=== PATIENT | female | born 1960 | race Caucasian/White ===

== ENCOUNTER 2019-07-01 09:24 | Emergency (ER) | payer BC ==
[2019-07-01 10:12] LABS: Absolute Lymphocytes (CBC) 1.6 K/uL (0.7-4.9); Basophils % 0.6 % (0-1.3); Hematocrit 38.7 % (36.0-45.0); Lymphocytes % 35.4 % (15.3-44.8); MPV 8.4 fL (7.6-11.3); RBC Red Blood Cell Count 4.22 M/uL (3.86-4.86)
[2019-07-01 10:25] LABS: BUN Blood Urea Nitrogen 16 mg/dL (7-18); Bicarbonate 30 mmol/L (21-32); Glucose Level 97 mg/dL (74-106); NT PRO-BNP 17 pg/mL (<125); Potassium 4.1 mmol/L (3.5-5.1); Sodium Level 140 mmol/L (136-145); Troponin (Emerg Dept Use Only) < 0.02 ng/mL (0.0-0.045)
--- OUTSIDE RECORDS SUMMARY | 2019-07-01 10:38 | XMS REPORT | Summary of Care ---
:1960 Author Organization [facility] Address [address] [place] [address] Care Team Providers Name Role Phone Akash Appiah Siobhan Primary Care Provider Reason for Visit Reason Comments Results Encounter Details Date Type Department Care Team Description 06/28/2019 Telephone ACCESS CENTER Comfort Marquez FNP Results [address] [place] [address] [address] [facility] [phone] [place] [id number] [phone] Allergies Active Allergy Reactions Severity Noted Date Comments Amoxicillin-Pot Clavulanate Nausea and/or Vomiting Codeine Nausea and/or Vomiting 06/27/2019 documented as of this encounter (statuses as of 06/28/2019) Medications Medication Sig Dispensed Refills Start Date End Date Status estradiol 1 mg tablet TK 1 T PO QD 0 05/26/2019 Active PREM-D 24 HOUR TK 1 T PO QD PRF 0 06/03/2019 Active 180-240 mg per 24 hr ALLERGIES OR tablet CONGESTION. levoFLOXacin 750 mg TK 1 T PO QD FOR 5 0 06/03/2019 Active tablet DAYS benzonatate 100 mg TK 1 TO 2 C PO Q 6 0 06/03/2019 Active capsule H PRF COUGH budesonide 0.25 mg/2 USE 2 PUFFS PO BID 0 06/25/2019 Active mL nebulizer solution AND RINSE MOUTH AFTER USE azithromycin 250 mg 0 06/25/2019 Active tablet promethazine 6.25 mg/5 TK 5 TO 10 ML PO 0 06/25/2019 Active mL solution TID PRN FOR COUGH rosuvastatin 10 mg TK 1 T PO D 0 04/14/2019 Active tablet mesalamine (PENTASA Take by mouth. 0 Active ORAL) fluticasone propionate Use in each 0 Active (FLONASE NASAL) nostril. documented as of this encounter (statuses as of 06/28/2019) Active Problems No known active problemsdocumented as of this encounter (statuses as of 06/28/2019) Social History Tobacco Use Types Packs/Day Years Used Date Never Smoker Smokeless Tobacco: Never Used Sex Assigned at Date Recorded Not on file Job Start Date Occupation Industry Not on file Not on file Not on file Travel History Travel Start Travel End No recent travel history available. COVID-19 Exposure Response Date Recorded In the last month, have you been in contact with No / Unsure 06/27/2019 11:16 AM CDT someone who was confirmed or suspected to have Coronavirus / COVID-19? documented as of this encounter Last Filed Vital Signs Not on filedocumented in this encounter Plan of Treatment Health Maintenance Due Date Last Done Comments HEPATITIS C (HCV) SCREEN 1960 DTaP,Tdap,and Td Vaccines (1 - 1973 Tdap) PAP SMEAR 1983 Breast Cancer Screening 2002 (MAMMOGRAM) COLONOSCOPY 01/12/2012 Zoster Recombinant Vaccine 01/12/2012 (SHINGRIX) (1 of 2) INFLUENZA VACCINE (Season Ended) 2019 PNEUMOCOCCAL 0-64 YEARS COMBINED Aged Out No longer eligible based on SERIES patient's age to complete this topic documented as of this encounter Results Not on filedocumented in this encounter Insurance Payer Benefit Plan Subscriber ID Effective Dates Phone Address Type / Group BCBS OF [facility] [id number] 2018-Kory [phone] [address] PPO/POS [place] - OUT OF t 7 [id number] [place] [address] documented as of this encounter
--- OUTSIDE RECORDS SUMMARY | 2019-07-01 10:38 | XMS REPORT ---
:1960 Author Organization [facility] t Address [address] [place] [address] Dr. Peterson[address] [place] [address] Care Team Providers Name Role Phone Unavailable Unavailable Unavailable Problems This patient has no known problems. Allergies, Adverse Reactions, Alerts This patient has no known allergies or adverse reactions. Medications This patient has no known medications.
--- OUTSIDE RECORDS SUMMARY | 2019-07-01 10:38 | XMS REPORT | Summary of Care ---
:1960 Author Organization [facility] Address [address] [place] [address] Care Team Providers Name Role Phone Akash Appiah Primary Care Provider Reason for Visit Reason Comments Cough productive, x 06/03/2019, pt denies fever Shortness of Breath WHEEZING Encounter Details Date Type Department Care Team Description 06/27/2019 Urgent Care [facility] Anatoly Yost MD [facility] [address] [place] [address] Cough (Primary Dx); Medicine - [place] [facility] SOB (shortness of breath); [facility] Drkarina chavze Blood pressure elevated with [place] [address] Allergies Active Allergy Reactions Severity Noted Date Comments Amoxicillin-Pot Clavulanate Nausea and/or Vomiting Codeine Nausea and/or Vomiting 06/27/2019 documented as of this encounter (statuses as of 06/27/2019) Medications Medication Sig Dispensed Refills Start Date [...] as of this encounter (statuses as of 06/27/2019) Active Problems No known active problemsdocumented as of this encounter (statuses as of 06/27/2019) Social History Tobacco Use Types Packs/Day Years [...] of this encounter Last Filed Vital Signs Vital Sign Reading Time Taken Comments Blood Pressure 151/83 06/27/2019 11:31 AM CDT Pulse 72 06/27/2019 11:26 AM CDT Temperature 36.6 C (97.8 F) 06/27/2019 11:26 AM CDT Respiratory Rate 18 06/27/2019 11:26 AM CDT Oxygen Saturation 99% 06/27/2019 11:26 AM CDT Inhaled Oxygen Concentration - - Weight 63.5 kg (140 lb) 06/27/2019 11:26 AM CDT Height 162.6 cm (5' 4") 06/27/2019 11:26 AM CDT Body Mass Index 24.03 06/27/2019 11:26 AM CDT documented in this encounter Patient Instructions Patient InstructionsComfort Marquez FNP - 06/27/2019 11:20 AM CDT Patient Education Shortness of Breath (Dyspnea) Shortness of breath is the feeling that you can't catch your breath or get enough air. It is also known as dyspnea. Dyspnea can be caused by many different conditions. They include: Acute asthma attack Worsening of chronic lung diseases such as chronic bronchitis and emphysema Heart failure. This is when weak heart muscle allows extra fluid to collect in the lungs. Panic attacks or anxiety. Fear can cause rapid breathing (hyperventilation). Pneumonia, or an infection in the lung tissue Exposure to toxic substances, fumes, smoke, or certain medicines Blood clot in the lung (pulmonary embolism). This is often from a piece of blood clot in a deep vein of the leg (deep vein thrombosis) that breaks off and travels to the lungs. Heart attack or heart-related chest pain (angina) Anemia Collapsed lung (pneumothorax) Dehydration Based on your visit today, the exact cause of your shortness of breath is not certain. Your tests dont show any of the serious causes of dyspnea. You may need other tests to find out if you have a serious problem. Its important to watch for any new symptoms or symptoms that get worse. Follow up with your healthcare provider as directed. Home care Follow these tips to take care of yourself at home: When your symptoms are better, go back to your usual activities. If you smoke, you should stop. Join a quit-smoking program or ask your healthcare provider for help. Eat a healthy diet and get plenty of sleep. Get regular exercise. Talk with your healthcare provider before starting to exercise, especially if you have other medical problems. Cut down on the amount of caffeine and stimulants you consume. Follow-up care Follow up with your healthcare provider, or as advised. If tests were done, you will be told if your treatment needs to be changed. You can call as directedfor the results. If an X-ray was taken, a specialist will review it. You will be notified of any new findings that may affect your care. Call 911 Shortness of breath may be a sign of a serious medical problem. For example, it may be a problem with your heart or lungs. Call 911 if you have worsening shortness of breath or trouble breathing, especially with any of the symptoms below: Confusion or difficulty waking Fainting or loss of consciousness. Fast or irregular heartbeat Coughing up blood Pain in your chest, arm, shoulder, neck, or upper back Sweating When to seek medical advice Call your healthcare provider right away if any of these occur: Slight shortness of breath or wheezing Redness, pain or swelling in your leg, arm, or other body area Swelling in both legs or ankles Fast weight gain Dizziness or weakness Fever of 100.4F (38C) or higher, or as directed by your healthcare provider [employer] last reviewed this educational content on 07/28/201719996039-9424 [employer]. [address] [place] [address], [place] [address]. All rights reserved. This information is not intended as a substitute for professional medical care. Always follow your healthcare professional's instructions. Patient Education Chronic Cough withUncertain Cause (Adult) Everyone has had a cough as part of the common cold, flu, or bronchitis. This kind of cough occurs along with an achy feeling, low-grade fever, nasal and sinus congestion, and a scratchy or sore throat. This usually gets better in 2 to 3 weeks. A cough that lasts longer than 3 weeks may be due to other causes. Your healthcare provider may refer to this as a chronic cough. If your cough does not improve over the next 2 weeks, further testing may be needed. Follow up with your healthcare provider as advised. Cough suppressants may be recommended. Based on your exam today,the exact cause of your cough is not certain. Below are some common causes for persistent cough. Smoker's cough Smokers cough doesnt go away. If you continue to smoke, it only gets worse. The cough is from irritation in the air passages. Talk to your healthcare provider about quitting. Medicines or nicotine-replacement products, like gum or the patch, may make quitting easier. Postnasal drip A cough that is worse at night may be due to postnasal drip. Excess mucus in the nose drains from the back of your nose to your throat. This triggers the cough reflex. Postnasal drip may be due to a sinus infection or allergy. Common allergens include dust, tobacco smoke (both inhaled and secondhand smoke), environmental pollutants, pollen, mold, pets, cleaning agents, room deodorizers, and chemical fumes. Ulbl-vtl-rucyzyx antihistamines or decongestants may be helpful for allergies. A sinus infection may requires antibiotic treatment. See your healthcare provider if symptoms continue. Medicines Certain prescribed medicines can cause a chronic cough in some people: PERLA inhibitors for high blood pressure. These include benazepril, captopril, enalapril, fosinopril, lisinopril, quinapril, ramipril, and others. Beta-blockers for high blood pressure and other conditions. These include propranolol, atenolol, metoprolol, nadolol, and others. Let your healthcare provider know if you are taking any of these. The chronic cough may mean your medicine needs to be changed. Asthma Cough may be the only sign of mild asthma. You may have tests to find out if asthma is causing your cough. You may also take asthma medicine on a trial basis. Acid reflux (heartburn, GERD) The esophagus is the tube that carries food from the mouth to the stomach. A valve at its lower end prevents stomach acids from flowing upward. If this valve does not work properly, acid from the stomach enters the esophagus. This may cause a burning pain in the upper abdomen or lower chest, belching,or cough. Symptoms are often worse when lying flat. Avoid eating or drinking before bedtime. Try using extra pillows to raise your upper body, or place 4-inch blocks under the head of your bed. You maytry an mvls-rgg-hlxdpvn (OTC) antacid or an acid-blocking medicine such as famotidine, cimetidine, ranitidine, esomeprazole, lansoprazole, or omeprazole. Stronger medicines for this condition can be prescribed by your healthcare provider. Ask your healthcare provider which OTC medicine to use. Depending on your current medicines, some OTC medicines may cause drug interactions and should be avoided. Follow-up care Follow up with your healthcare provider, or as advised, if your cough does not improve. Further testing may be needed. Note: If an X-ray was taken, a specialist will review it. You will be notified of any new findings that may affect your care. When to seek medical advice Call your healthcare provider right away if any of these occur: Mild wheezing or difficulty breathing Fever of 100.4F (38C) or higher, or as directed by your healthcare provider Unexpected weight loss Coughing up large amounts of colored sputum or blood-tinged sputum Night sweats (sheets and pajamas get soaking wet) Call 911 Call 911 if any of these occur: Coughing up blood Moderate to severe trouble breathing or wheezing [employer] last reviewed this educational content on 07/28/[id number] [employer]. [address] [place] [address], [place] [address]. All rights reserved. This information is not intended as a substitute for professional medical care. Always follow your healthcare professional's instructions. documented in this encounter Progress Notes Comfort Marquez, CONSTANTINO - 06/27/2019 11:20 AM CDT Cc: Chief Complaint Patient presents with Cough productive, x 06/03/2019, pt denies fever Shortness of Breath WHEEZING Aura Looney is a 59 year old female. 3 weeks of cough, on had a chest X-ray- was treated as an allergy cough, as the cough continued she followed up was given Levaquin, then Z-pack and steroid inhaler, mucinex and promethazine was given this past tuesdays as a second routine of therapies. She is here to be screened to for covid due toprolonged symptoms. Cough Cough characteristics: Dry Sputum characteristics: Nondescript Severity: Moderate Onset quality: Gradual Duration: 3 weeks Timing: Constant Progression: Unchanged Chronicity: New Smoker: no Context: upper respiratory infection Relieved by: Nothing Worsened by: Deep breathing and lying down Ineffective treatments: Decongestant and ipratropium inhaler Associated symptoms: chills, shortness of breath and wheezing Associated symptoms: no chest pain and no fever Shortness of breath: Severity: Mild Onset quality: Gradual Timing: Intermittent Progression: Improving Wheezing: Severity: Mild Onset quality: Gradual Timing: Intermittent Progression: Improving Chronicity: Recurrent Risk factors: recent infection Allergies Aura is allergic to augmentin [amoxicillin-pot clavulanate] and codeine. Medications Outpatient Medications Prior to Visit Medication Sig Dispense Refill PREM-D 24 HOUR 180-240 mg per 24 hr tablet TK 1 T PO QD PRF ALLERGIES OR CONGESTION. azithromycin 250 mg tablet benzonatate 100 mg capsule TK 1 TO 2 C PO Q 6 H PRF COUGH budesonide 0.25 mg/2 mL nebulizer solution USE 2 PUFFS PO BID AND RINSE MOUTH AFTER USE estradiol 1 mg tablet TK 1 T PO QD fluticasone propionate (FLONASE NASAL) Use in each nostril. mesalamine (PENTASA ORAL) Take by mouth. promethazine 6.25 mg/5 mL solution TK 5 TO 10 ML PO TID PRN FOR COUGH rosuvastatin 10 mg tablet TK 1 T PO D levoFLOXacin 750 mg tablet TK 1 T PO QD FOR 5 DAYS No facility-administered medications prior to visit. Histories No past medical history on file. No past surgical history on file. Social History Socioeconomic History Marital status: Spouse name: Not on file Number of children: Not on file Years of education: Not on file Highest education level: Not on file Occupational History Not on file Social Needs Financial resource strain: Not on file Food insecurity: Worry: Not on file Inability: Not on file Transportation needs: Medical: Not on file Non-medical: Not on file Tobacco Use Smoking status: Never Smoker Smokeless tobacco: Never Used Substance and Sexual Activity Alcohol use: Not on file Drug use: Not on file Sexual activity: Not on file Lifestyle Physical activity: Days per week: Not on file Minutes per session: Not on file Stress: Not on file Relationships Social connections: Talks on phone: Not on file Gets together: Not on file Attends jewish service: Not on file Active member of club or organization: Not on file Attends meetings of clubs or organizations: Not on file Relationship status: Not on file Intimate partner violence: Fear of current or ex partner: Not on file Emotionally abused: Not on file Physically abused: Not on file Forced sexual activity: Not on file Other Topics Concern Not on file Social History Narrative Not on file No family history on file. Review of Systems Constitutional: Positive for chills. Negative for fever. Eyes: Negative. Respiratory: Positive for cough, shortness of breath and wheezing. Negative for apnea, choking and chest tightness. Cardiovascular: Negative. Negative for chest pain, palpitations and leg swelling. Gastrointestinal: Negative. Skin: Negative. Neurological: Negative. Endocrine: Endocrine negative Vital Signs BP (!) 151/83 | Pulse 72 | Temp 36.6 C (97.8 F) (Oral) | Resp 18 | Ht 5' 4" (1.626 m) | Wt 140 lb (63.5 kg) | SpO2 99% | BMI 24.03 kg/m Physical Exam Constitutional: She is oriented to person, place, and time. She appears well- developed and well-nourished. HENT: Head: Normocephalic. Right Ear: Hearing, tympanic membrane, external ear and ear canal normal. Left Ear: Hearing, tympanic membrane, external ear and ear canal normal. Nose: Nose normal. Right sinus exhibits no maxillary sinus tenderness and no frontal sinus tenderness. Left sinus exhibits no maxillary sinus tenderness and no frontal sinus tenderness. Mouth/Throat: Uvula is midline, oropharynx is clear and moist and mucous membranes are normal. No tonsillar exudate. Neck: Normal range of motion. Neck supple. Cardiovascular: Normal rate, regular rhythm, normal heart sounds and intact distal pulses. Exam reveals no gallop and no friction rub. No murmur heard. Pulmonary/Chest: Effort normal and breath sounds normal. No respiratory distress. She has no wheezes. She has no rales. She exhibits no tenderness. Abdominal: Soft. Bowel sounds are normal. She exhibits no distension. There is no tenderness. Lymphadenopathy: Head (right side): No submental, no submandibular, no tonsillar, no preauricular and no posterior auricular adenopathy present. Head (left side): No submental, no submandibular, no tonsillar, no preauricular and no posterior auricular adenopathy present. She has no cervical adenopathy. Neurological: She is alert and oriented to person, place, and time. Skin: Skin is warm and dry. Capillary refill takes less than 2 seconds. No rash noted. No erythema. No pallor. Psychiatric: She has a normal mood and affect. Nursing note and vitals reviewed. Assessment/Plan 1. Cough: continue cough medication and z-pack given by PCP. covid test done pending result, In the meantime, quarantine in place, treat symptoms with OTC meds, Tylenol as needed but no NSAIDs. Stay in quarantine until symptoms subsides, plus 3 days afterwards or until you hear otherwise. Follow up with your PCP as needed, and if with worsening of symptoms, any respiratory distress, go to the ER. 2. SOB: Continue rescue inhaler as prescribed again if no relief, worse please go tot he ER or RTC depending on severity. 3. Elevated blood pressure: Watch blood pressure: check at least twice weekly. Low salt Low caffeine diet Low alcohol Avoid tobacco products. Heart Healthy Exercise: total of 150 minutes of cardio: walking,swimming, hiking, biking every week. Heart healthy diet: low fat/carb/sugar diet; increase lean meat-chicken, turkey, fish; increase vegetables/fruits ( still be careful because elevated sugar level) ER--> worsening condition; cp, shortness of breath, dizziness, syncope, palpitations, n/v, diaphoresis. Plan of care, desired health behaviors, goals, and medication discussed with patient. Education resources provided and reviewed with AVS. Patient/guardian/family verbalized understanding & agrees to plan of care. This visit did not involve counseling and coordination that comprised more than 50% of the visit time. If applicable, the [facility] database was accessed to review any controlled substance prescription claims data. The [employer] prescription claims data in [employer] was reviewed to assess patient compliance with the medication treatment plan. Maddie Moore RN - 06/27/2019 11:20 AM CDT Aura Looney is a 59 year old female Chief Complaint Patient presents with Cough productive, x 06/03/2019, pt denies fever Shortness of Breath WHEEZING Vitals: 06/27/19 1126 BP: (!) 157/82 Pulse: 72 Resp: 18 Temp: 36.6 C (97.8 F) TempSrc: Oral SpO2: 99% Weight: 140 lb (63.5 kg) Height: 5' 4" (1.626 m) [employer] #[id number] [place] [address] [employer] [facility] Patient AAOx4 and in no acute distress. All Vitals taken, allergies and all medications reviewed, fall risk assessed. Pain level 0. documented in this encounter Plan of Treatment Name Type Priority Associated Diagnoses Order S chedule CORONAVIRUS COVID-19 LAB Routine Cough Expected: 06/27/2019, TESTING SOB (shortness of Expires: 0 06/26/2020 breath) Health Maintenance Due Date Last Done Comments HEPATITIS C (HCV) SCREEN 1960 DTaP,Tdap,and Td Vaccines (1 - 1973 Tdap) PAP SMEAR 1983 Breast Cancer Screening 2002 (MAMMOGRAM) COLONOSCOPY 01/12/2012 Zoster Recombinant Vaccine 01/12/2012 (SHINGRIX) (1 of 2) INFLUENZA VACCINE (#1) 2018 PNEUMOCOCCAL 0-64 YEARS COMBINED Aged Out No longer eligible based on SERIES patient's age to complete this topic documented as of this encounter Results Not on filedocumented in this encounter Visit Diagnoses Diagnosis Cough - Primary SOB (shortness of breath) Shortness of breath Blood pressure elevated without history of HTN Elevated blood pressure reading without diagnosis of hypertension documented in this encounter Insurance Payer Benefit Plan Subscriber ID Effective Dates Phone Address Type / Group BCBS [facility] [id number] 2019-Pres [phone] [address] PPO/POS [facility] [id number] [place] [address] documented as of this encounter
--- NOTE | 2019-07-01 10:49 | EKG ---
Test Date: 2019-07-01 Test Time: 09:42:39 [employer] Observer Helper: JINNY MEASUREMENT RESULTS: Intervals: Rate: 75 MN: 128 QRSD: 86 QT: 378 QTc: 422 Taft: P: 79 MN: 128 QRS: 65 T: 69 INTERPRETIVE STATEMENTS: Normal sinus rhythm with sinus arrhythmia Normal ECG No previous ECG available for comparison Electronically Signed On 07-01-19 10:48:55 CDT by Eric Yañez
--- NOTE | 2019-07-01 11:06 | RAD REPORT ---
EXAM DESCRIPTION: Galina Ellington (2 Views)07/01/2019 10:48 am CLINICAL HISTORY: Chest pain COMPARISON: 2018 FINDINGS: The lungs appear clear of acute infiltrate. The heart is normal size IMPRESSION: No acute abnormalities displayed
--- NOTE | 2019-07-01 11:10 | ER ---
Nurse's Notes [facility] Name: Aura Looney Age: 59 yrs Sex: Female : 1960 Arrival Date: 07/01/2019 Time: 09:27 Bed 19 Private MD: Akash Appiah Diagnosis: Chest pain, unspecified Presentation: 06/30 09:45 Chief complaint: Patient states: sharp, L sided chest wall pain that began 3 days ago. ss Worse with movement. PT recently had a cough, but was given IM antibiotics, inhaler and tested COVID. Pt reports that her cough has improved significantly and her COVID test was negative. Denies fever. Coronavirus screen: Proceed with normal triage. Patient denies travel on a cruise ship or to a country the [facility] currently lists as an affected area. Patient denies contact with known and/or suspected case of COVID-19. Ebola Screen: Patient denies exposure to infectious person. Patient denies travel to an Ebola-affected area in the 21 days before illness onset. Initial Sepsis Screen: Does the patient meet any 2 criteria? No. Patient's initial sepsis screen is negative. Does the patient have a suspected source of infection? No. Patient's initial sepsis screen is negative. Risk Assessment: Do you want to hurt yourself or someone else? Patient reports no desire to harm self or others. Onset of symptoms was June 28, 2019. 09:45 Method Of Arrival: Ambulatory 09:45 Acuity: BRIANDA 3 ss Historical: - Allergies: 09:49 Codeine; ss 09:49 Augmentin; ss - PMHx: 09:49 chron's disease; High Cholesterol; IBS; ss - PSHx: 09:49 Tonsillectomy; Hysterectomy; Appendectomy; Cholecystectomy; ss - Immunization history:: Adult Immunizations up to date. - Social history:: Smoking status: Patient denies any tobacco usage or history of. - Family history:: not pertinent. - Hospitalizations: : No recent hospitalization is reported. Screenin:37 Abuse screen: Denies threats or abuse. Denies injuries from another. Nutritional ph screening: No deficits noted. Tuberculosis screening: No symptoms or risk factors identified. Fall Risk None identified. Assessment: 10:30 General: Appears in no apparent distress. comfortable, slender, well groomed, Behavior ph is calm, cooperative, appropriate for age, Denies fever. Pain: Complains of pain in chest Pain does not radiate. Quality of pain is described as sharp. Neuro: Level of Consciousness is awake, alert, obeys commands, Oriented to person, place, time, situation. Cardiovascular: Reports chest pain, Denies fatigue, lightheadedness, nausea, palpitations, shortness of breath, Capillary refill < 3 seconds in bilateral fingers Patient's skin is warm and dry. Rhythm is regular Chest pain is located in left anterior chest wall is aggravated by breathing. Respiratory: Reports pain with respiration Airway is patent Respiratory effort is even, unlabored, Respiratory pattern is regular, symmetrical, Denies cough, shortness of breath. GI: No signs and/or symptoms were reported involving the gastrointestinal system. Derm: Skin is intact, is healthy with good turgor, Skin is pink, warm \T\ dry. Musculoskeletal: Circulation, motion, and sensation intact. Range of motion: intact in all extremities. Vital Signs: 09:45 BP 141 / 72; Pulse 86; Resp 15; Temp 98.5(TE); Pulse Ox 100% on R/A; Weight 63.5 kg; ss Height 5 ft. 4 in. (162.56 cm); Pain 6/10; 11:36 BP 123 / 56; Pulse 76; Resp 18; Temp 98.0; Pulse Ox 99% on R/A; ph 09:45 Body Mass Index 24.03 (63.50 kg, 162.56 cm) ss ED Course: 09:27 Patient arrived in ED. am2 09:27 Akash Appiah MD is Private Physician. am2 09:30 Barney Hale MD is Attending Physician. rn 09:43 EKG done, by coding technician. reviewed by Barney Hale MD. at1 09:48 Triage completed. ss 09:49 Arm band placed on right wrist. ss 09:54 Initial lab(s) drawn, by me, sent to lab. Inserted saline lock: 20 gauge in right jl7 antecubital area, using aseptic technique. Blood collected. 09:59 Iram Jorge, RN is Primary Nurse. ph 10:47 XRAY Chest Pa And Lat (2 Views) In Process Unspecified. EDMS 11:37 Patient has correct armband on for positive identification. Placed in gown. Bed in low ph position. Call light in reach. Side rails up X 1. library monitor on. Pulse ox on. NIBP on. Door closed. Noise minimized. Warm blanket given. 11:40 No provider procedures requiring assistance completed. IV discontinued, intact, ph bleeding controlled, No redness/swelling at site. Pressure dressing applied. Patient maintains SpO2 saturation greater than 95% on room air. Administered Medications: No medications were administered Outcome: 11:10 Discharge ordered by . rn 11:40 Discharged to home ambulatory. ph 11:40 Condition: good 11:40 Discharge instructions given to patient, Instructed on discharge instructions, follow up and referral plans. Demonstrated understanding of instructions, follow-up care. 11:41 Patient left the ED. ph Signatures: Dispatcher [employer] EDMS Barney Hale MD MD rn Smirch, Shelby RN RN ss Yue Hicks, rubber down EKG Tat1 Iram Jorge RN RN ph Miguel Camp RN RN jl7 Yue Carrillo am2
--- NOTE | 2019-07-01 11:11 | EDPHYS ---
Physician Documentation [facility] Name: Aura Looney Age: 59 yrs Sex: Female : 1960 Arrival Date: 07/01/2019 Time: 09:27 Bed 19 Private MD: Akash Appiah ED Physician Barney Hale HPI: 06/30 10:28 This 59 yrs old Female presents to ER via Ambulatory with complaints of Chest rn Pain. 10:28 The patient or guardian reports chest pain that is located primarily in the anterior rn chest wall, left. Onset: 3 day(s) ago. The pain does not radiate. Associated signs and symptoms: Pertinent positives: cough, Pertinent negatives: abdominal pain, diaphoresis, nausea, palpitations, shortness of breath, syncope, vomiting. The chest pain is described as aching, sharp. Duration: The patient or guardian reports multiple episodes, that are intermittent. Modifying factors: The symptoms are alleviated by remaining still, splinting chest when turning. the symptoms are aggravated by movement, palpation of area, twisting torso. Severity of pain: At its worst the pain was mild in the emergency department the pain is unchanged. The patient has not experienced similar symptoms in the past. The patient has been recently seen by a physician:. Reports seen a few times by doctors over last month for cough, has had 2 rounds of abx, inhalers, steroids, allergy medication and cough is finally improving. No fever. COVID-19 test neg from 4 days ago. No trauma. Hurts left chest when moves/coughs/palpates, improved with splinting of chest with hand when twisting or moving. NO hemoptysis. No hx of dvt/pe/cardiac problems. . Historical: - Allergies: 09:49 Codeine; ss 09:49 Augmentin; ss - PMHx: 09:49 chron's disease; High Cholesterol; IBS; ss - PSHx: 09:49 Tonsillectomy; Hysterectomy; Appendectomy; Cholecystectomy; ss - Immunization history:: Adult Immunizations up to date. - Social history:: Smoking status: Patient denies any tobacco usage or history of. - Family history:: not pertinent. - Hospitalizations: : No recent hospitalization is reported. ROS: 10:28 Constitutional: Negative for fever, chills, and weight loss, Eyes: Negative for injury, rn pain, redness, and discharge, Neck: Negative for injury, pain, and swelling, Cardiovascular: Negative for palpitations, and edema, Respiratory: Negative for shortness of breath, wheezing Abdomen/GI: Negative for abdominal pain, nausea, vomiting, diarrhea, and constipation, MS/Extremity: Negative for injury and deformity, Skin: Negative for injury, rash, and discoloration, Neuro: Negative for headache, weakness, numbness, tingling, and seizure. Exam: 10:28 Constitutional: This is a well developed, well nourished patient who is awake, alert, rn and in no acute distress. Ambulatory to room without difficulty or assistance. Head/Face: Normocephalic, atraumatic. ENT: MMM, no stridor Cardiovascular: Regular rate and rhythm. No pulse deficits. Respiratory: Lungs have equal breath sounds bilaterally, clear to auscultation. No increased work of breathing, no retractions or nasal flaring. Abdomen/GI: soft, non-tender MS/ Extremity: Pulses equal, no cyanosis. Neuro: Awake and alert, GCS 15, oriented to person, place, time, and situation. Cranial nerves II-XII grossly intact. Motor strength 5/5 in all extremities. Sensory grossly intact. Cerebellar exam normal. Normal gait. Vital Signs: 09:45 BP 141 / 72; Pulse 86; Resp 15; Temp 98.5(TE); Pulse Ox 100% on R/A; Weight 63.5 kg; ss Height 5 ft. 4 in. (162.56 cm); Pain 6/10; 11:36 BP 123 / 56; Pulse 76; Resp 18; Temp 98.0; Pulse Ox 99% on R/A; ph 09:45 Body Mass Index 24.03 (63.50 kg, 162.56 cm) ss MDM: 09:30 Patient medically screened. rn 11:09 Differential diagnosis: acute pericarditis, chest wall pain, costochondritis, rn pericarditis, pleurisy, pneumonia, pneumothorax, pulmonary embolus. Data reviewed: vital signs, nurses notes, lab test result(s), EKG, radiologic studies, plain films, and as a result, I will discharge patient. Test interpretation: by ED physician or midlevel provider: ECG, plain radiologic studies, CXR neg for acute abnormality. Counseling: I had a detailed discussion with the patient and/or guardian regarding: the historical points, exam findings, and any diagnostic results supporting the discharge/admit diagnosis, lab results, radiology results, the need for outpatient follow up, to return to the emergency department if symptoms worsen or persist or if there are any questions or concerns that arise at home. Special discussion: Based on the patient's history, exam, and Dx evaluation, there is no indication for emergent intervention or inpatient Tx. It is understood by the patient/guardian that if the Sx's persist or worsen they need to return immediately for re-evaluation. I discussed with the patient/guardian in detail that at this point there is no indication for admission to the hospital. It is understood, however, that if the symptoms persist or worsen the patient needs to return immediately for re-evaluation. ED course: Neg CXR, neg d-dimer, no ischemia on ECG, neg trop. Will dc home as pleurisy/chest wall pain with return precautions. No oxygen requirement. . 06/30 09:41 Order name: Basic Metabolic Panel; Complete Time: 10:32 rn 06/30 09:41 Order name: CBC with Diff; Complete Time: 10:23 rn 06/30 09:41 Order name: NT PRO-BNP; Complete Time: 10:32 rn 06/30 09:41 Order name: Troponin (emerg Dept Use Only); Complete Time: 10:32 rn 06/30 09:41 Order name: D-Dimer; Complete Time: 10:23 rn 06/30 09:41 Order name: EKG; Complete Time: 09:42 rn 06/30 09:41 Order name: Cardiac monitoring; Complete Time: 10:55 rn 06/30 09:41 Order name: EKG - Nurse/Tech; Complete Time: 09:50 rn 06/30 09:41 Order name: IV Saline Lock; Complete Time: 09:54 rn 06/30 09:41 Order name: Labs collected and sent; Complete Time: 09:53 rn 06/30 09:41 Order name: O2 Per Protocol; Complete Time: 09:50 rn 06/30 09:41 Order name: O2 Sat Monitoring; Complete Time: 09:50 rn 06/30 09:41 Order name: XRAY Chest Pa And Lat (2 Views); Complete Time: 11:26 rn Administered Medications: No medications were administered Disposition: 07/01/19 11:10 Discharged to Home. Impression: Chest pain, unspecified. - Condition is Stable. - Discharge Instructions: Nonspecific Chest Pain, Chest Wall Pain. - Medication Reconciliation Form, Thank You Letter, Antibiotic Education, Prescription Opioid Use, Work release form form. - Follow up: Private Physician; When: As needed; Reason: Recheck today's complaints, Re-evaluation by your physician. - Problem is an ongoing problem. - Symptoms have improved. Signatures: Dispatcher [employer] [facility] Barney Hale MD MD rn Smirch, Shelby, RN RN Iram Jorge RN RN ph Corrections: (The following items were deleted from the chart) 10:33 09:42 Chest Single View+RAD.RAD.BRZ ordered. [facility] 11:41 11:10 07/01/2019 11:10 Discharged to Home. Impression: Chest pain, unspecified. ph Condition is Stable. Forms are Medication Reconciliation Form, Thank You Letter, Antibiotic Education, Prescription Opioid Use. Follow up: Private Physician; When: As needed; Reason: Recheck today's complaints, Re-evaluation by your physician. Problem is an ongoing problem. Symptoms have improved. rn
[2019-07-01 11:55] VITALS: BP 123/56; TEMP 98; O2SAT 99
== END 2019-07-01 11:41 | disposition home or self-care (01) ==
LOC: ER 09:24
DX: R07.9 Chest pain, unspecified (principal); R05 Cough; E78.00 Pure hypercholesterolemia, unspecified; Z88.1 Allergy status to other antibiotic agents; Z88.5 Allergy status to narcotic agent
CPT/HCPCS: 36415; 71046; 80048; 83880; 84484; 85025; 85379; 93005; 99285